=== PATIENT | female | born 1995 | race Caucasian/White ===

== ENCOUNTER 2017-09-17 15:10 | Emergency (ER) | payer SELFPAY ==
[~2017-09-17] VITALS: Ht 175.3 cm; Wt 75.7 kg
[2017-09-17 15:22] VITALS: BP 104/65
--- NOTE | 2017-09-17 15:28 | NUR ---
PT AMBULATES TO BED 9
--- NOTE | 2017-09-17 15:42 | NUR ---
patient complaining of pelvic pain today. denies n/v, denies diarrhea. denies painful urination. awaiting for disposition.
[2017-09-17] MEDS ORDERED: KETOROLAC 60 MG/2 ML VIAL IM ONE (15:55)
[2017-09-17] MEDS ORDERED: LEVOFLOXACIN 500 MG TAB PO ONE (15:55)
[2017-09-17] MEDS ORDERED: LACTULOSE 20 GM/30 ML UDC PO ONE (15:55)
--- NOTE | 2017-09-17 16:05 | NUR ---
seen by dr. mcdonald
[2017-09-17 17:34] LABS: APPEARANCE,URINE CLEAR (CLEAR); BILIRUBIN,URINE NEGATIVE (NEGATIVE); BLOOD, URINE NEGATIVE (NEGATIVE); COLOR,URINE YELLOW (YELLOW); LEUKOCYTE ESTERASE ,URINE TRACE (NEGATIVE); NITRITE, URINE NEGATIVE (NEGATIVE); PH,URINE 6.5 (5.0-9.0); UGLUCOSE NEGATIVE (NEGATIVE)
[2017-09-17 17:36] LABS: RBC,URINE 0-5 (RARE) /HPF (0-5); WBC,URINE 0-5 (RARE) /HPF (0-5)
[2017-09-17 17:42] VITALS: BP 110/68
--- NOTE | 2017-09-17 17:42 | NUR ---
Patient discharged with v/s stable. Written and verbal after care instructions given and explained. Patient alert, oriented and verbalized understanding of instructions. Ambulatory with steady gait. All questions addressed prior to discharge. ID band removed. Patient advised to follow up with PMD. Rx of MOTRIN 800MG, LEVAQUIN 250 given. Patient educated on indication of medication including possible reaction and side effects. Opportunity to ask questions provided and answered.
== END 2017-09-17 17:42 | disposition home or self-care (01) ==
LOC: MED 15:10
DX: N30.90 Cystitis, unspecified without hematuria (principal); R25.2 Cramp and spasm
CPT/HCPCS: 76856; 81001; 81025; 87086; 96372; 99285; J1885; Q0092